=== PATIENT | female | born 1960 | race Caucasian/White ===

== ENCOUNTER 2022-09-14 01:55 | Emergency (ER) | payer OTHER ==
[~2022-09-14] VITALS: Ht 152.4 cm; Wt 84.4 kg
[2022-09-14 02:00] VITALS: BP 145/74; PULSE 64; RESP 12; TEMP 98; O2SAT 98
--- NOTE | 2022-09-14 02:01 | NUR ---
PT [facility] BED 4
--- NOTE | 2022-09-14 02:27 | NUR ---
Patient being evaluated by physician at bedside.
--- NOTE | 2022-09-14 02:30 | NUR ---
son at the bedside
[2022-09-14] MEDS ORDERED: MECL-303 PO (02:33)
[2022-09-14] MEDS ORDERED: ATA25 PO ×2 (02:33→08:25)
[2022-09-14 02:45] VITALS: BP 145/74; PULSE 64; RESP 12; TEMP 98; O2SAT 98
[2022-09-14] MEDS ORDERED: LORazepam 1 MG TAB PO ONE (02:50)
--- NOTE | 2022-09-14 03:26 | NUR ---
Patient discharged with v/s stable. Written and verbal after care instructions given and explained. Patient alert, oriented and verbalized understanding of instructions. Ambulatory with steady gait. All questions addressed prior to discharge. ID band removed. Patient advised to follow up with PMD. Rx of atarax and antivert given. Patient educated on indication of medication including possible reaction and side effects. Opportunity to ask questions provided and answered.
== END 2022-09-14 02:45 | disposition home or self-care (01) ==
LOC: MED 01:55
DX: F41.9 Anxiety disorder, unspecified (principal); R51.9 Headache, unspecified; R42 Dizziness and giddiness; I10 Essential (primary) hypertension; E03.9 Hypothyroidism, unspecified; Z79.899 Other long term (current) drug therapy
CPT/HCPCS: 99283

== ENCOUNTER 2022-12-03 17:24 | Emergency (ER) | payer OTHER ==
[~2022-12-03] VITALS: Ht 162.6 cm; Wt 79.4 kg
[~2022-12-03 17:24] MED LIST: ATA25 PO; MECL-303 PO
[2022-12-03 17:33] VITALS: BP 166/86; PULSE 100; RESP 18; TEMP 97.4; O2SAT 98
[2022-12-03] MEDS ORDERED: ATA25 PO (17:50)
[2022-12-03] MEDS ORDERED: METO50TA20 PO (17:50)
[2022-12-03] MEDS ORDERED: OMEP40EC23 PO (17:52)
[2022-12-03 18:14] VITALS: O2SAT 98
[2022-12-03] MEDS ORDERED: CIPR500T4 PO (18:25)
== END 2022-12-03 18:38 | disposition home or self-care (01) ==
LOC: MED 17:24
DX: R53.1 Weakness (principal); F41.9 Anxiety disorder, unspecified; N39.0 Urinary tract infection, site not specified; R19.7 Diarrhea, unspecified; I10 Essential (primary) hypertension; E07.9 Disorder of thyroid, unspecified; Z79.899 Other long term (current) drug therapy
CPT/HCPCS: 81002; 99283